=== PATIENT | male | born 1960 | race Caucasian/White ===

== ENCOUNTER → 2022-05-21 09:24 | Outpatient (BNVA) | payer BC, SELFPAY | PROVIDERS: Referring Provider Family Medicine; Visit Provider Orthopaedic Surgery | DX: M19.012 Primary osteoarthritis, left shoulder (principal) | CPT/HCPCS: 73030 ==

== ENCOUNTER → 2022-05-28 08:40 | Outpatient (BNVA) | payer BC, SELFPAY | PROVIDERS: Referring Provider Family Medicine; Visit Provider Orthopaedic Surgery | DX: M17.11 Unilateral primary osteoarthritis, right knee (principal) | CPT/HCPCS: 73560; 73565 ==

== ENCOUNTER 2022-06-11 07:21 | Outpatient (CLI) | payer BC, SELFPAY ==
--- NOTE | 2022-06-11 07:30 | CT_ITS ---
WS: [id number] NONCONTRAST CT LEFT SHOULDER TECHNIQUE: Noncontrast CT LEFT shoulder with coronal and sagittal reformatted images. MIP images. CLINICAL INFORMATION: pre op planning COMPARISON: None. DLP: 308.[address] scans at [facility] use at least one of these dose optimization techniques: automated e xposure control; mA and/or kV adjustment per patient size (includes targeted exams where dose is matc hed to clinical indication); or iterative reconstruction. FINDINGS: Advanced degenerative arthritis glenohumeral joint with subchondral cystic changes involving the fariba ral head and glenoid. Hypertrophic spurring along the medial humeral head. Moderate degenerative narr owing at the AC joint with narrowing of the subacromial space. Mild downsloping of the acromion. Clavicle is normal in appearance. Proximal humerus is normal in appearance. Mild thinning of the supr aspinatus. Normal scapula. Partially visualized LEFT lung is well aerated. CT/CT shoulder LT wo con* [id number] IMPRESSION: Images obtained for preoperative purposes
== END 2022-06-11 07:22 | disposition home or self-care (01) ==
PROVIDERS: PCP Family Medicine; Visit Provider Orthopaedic Surgery
DX: M19.012 Primary osteoarthritis, left shoulder (principal)
CPT/HCPCS: 73200

== ENCOUNTER 2022-06-24 10:30 | Observation (INO) | payer BC, SELFPAY ==
[2022-06-17 11:02] VITALS: BMI 29.0
[2022-06-17 11:14] LABS: Basophils # 0.1 10^3/uL (0.0-0.1); Basophils % 1.4 %; Eosinophils # 0.1 10^3/uL (0.0-0.8); Hemoglobin 14.4 g/dL (11.7-16.6); Lymphocytes # 1.2 10^3/uL (0.8-4.8); Lymphocytes % 22.5 %; Mean Corpuscular HGB Conc 34.3 g/dL (30.0-36.0); Mean Corpuscular Hemoglobin 32.4 pg (28.0-34.0); Mean Corpuscular Volume 94.4 fl (80-94); Monocytes # 0.4 10^3/uL (0.2-0.9); Monocytes % 7.8 %; Neutrophils # 3.39 10^3/uL (1.8-7.7); Neutrophils % 66.1 %; Nucleated Red Blood Cells % 0 %; Platelet Count 244 10^3/cmm (130-400); Red Blood Count 4.45 10^6/uL (4.1-5.3); Red Cell Distribution Width 12.3 % (12.1-15.1); White Blood Count 5.1 10^3/uL (4.0-10.0)
[2022-06-17 11:34] LABS: Alanine Aminotransferase 29 U/L (0-41); Albumin Level 4.7 g/dL (3.5-5.2); Alkaline Phosphatase 66 U/L (40-130); Aspartate Amino Transferase 30 U/L (0-40); Blood Urea Nitrogen 12 mg/dL (8-23); Calcium 9.2 mg/dL (8.5-10.5); Carbon Dioxide 26 mmol/L (22-29); Chloride 102 mmol/L (98-107); Globulin 2.5 g/dL (1.3-4.6); Glomerular Filtration Rate 85.8 mL/min (90-130); Glucose 93 mg/dL (65-115); Osmolality Calculated 283 mOsm/kg (285-295); Sodium 137 mmol/L (136-145); Total Bilirubin 0.3 mg/dL (0.15-1.2); Total Protein 7.2 g/dL (6.6-8.7)
--- NOTE | 2022-06-17 15:21 | ANES.PREANE2 ---
Pre-Anesthetic Assessment Height/Weight: Height 1.75 m Weight 89.358 kg Operation Date: 06/24/22 07:00 Proposed Procedures p left total shoulder arthroplasty/ 56699,M19.012(Left) - Ye Ruelas MD Familial anesthetic complications: none Was Beta Jesus Alberto taken within 24 hours: N/A Was Clonidine taken within 24 hours: N/A Social No alcohol and No tobacco Exam alert, oriented x 3, clear to auscultation bilaterally and regular rate & rhythm Airway Submandibular: within normal limits Cervical ROM: within normal limits Mallampati: Class II Dentition: full CV/HEM Hypertension Metabolic Hyperlipidemia [facility] [place] Osteoarthritis/DJD Neuropsych Anxiety Anesthetic Plan ASA status: 2 Anesthesia: General and Regional (specify below) (Interscalene nerve blk) Medications/Allergies Home Medications Medication Instructions Recorded Confirmed Last Taken Type atorvastatin 20 mg tablet 20 mg PO DAILY 04/25/22 06/17/22 06/17/22 History celecoxib 200 mg capsule 200 mg PO DAILY 04/25/22 06/17/22 06/16/22 History cetirizine 10 mg tablet (Allergy 10 mg PO DAILY 04/25/22 06/17/22 06/17/22 History Relief (cetirizine)) losartan 50 mg tablet 50 mg PO DAILY 04/25/22 06/17/22 06/17/22 History diazepam 10 mg tablet 10 mg PO BEDTIME PRN Sleep 06/17/22 06/17/22 05/14/22 History zolpidem 10 mg tablet 10 mg PO BEDTIME 06/17/22 06/17/22 06/17/22 History Allergies Allergy/AdvReac Type Severity Reaction Status Date / Time No Known Allergies Allergy Verified 06/06/22 13:17 [facility] Anesthesia Family History Mother Aortic aneurysm Data Anesthesia 06/17/22 10:55 06/17/22 10:55 Short CBC 06/17/22 Range/Units 10:55 WBC 5.1 (4.0-10.0) 10^3/uL Hgb 14.4 (11.7-16.6) g/dL Hct 42.0 (42.0-52.0) % MCV 94.4 H (80-94) fl Plt Count 244 (130-400) 10^3/cmm Neut % (Auto) 66.1 % Neut # (Auto) 3.39 (1.8-7.7) 10^3/uL BMP 06/17/22 10:55 Sodium 137 Potassium 4.0 Chloride 102 Carbon Dioxide 26 BUN 12 Creatinine 0.9 Glucose 93 Calcium 9.2 Liver Function 06/17/22 Range/Units 10:55 Total Bilirubin 0.3 (0.15-1.2) mg/dL AST 30 (0-40) U/L ALT 29 (0-41) U/L Alkaline Phosphatase 66 (40-130) U/L Albumin 4.7 (3.5-5.2) g/dL Cardiac Studies: No Data to Display
[2022-06-24] VITALS (19 sets, daily range): BP systolic 100–132; BP diastolic 65–94; PULSE 61–97; RESP 12–18; TEMP 36.3–36.8; O2SAT 90–100
[2022-06-24] MEDS: sodium chloride 0.9% 1,000 ML 30 ML IV (06:02)
[2022-06-24] MEDS: CELEcoxib 200 mg Capsule 400 MG PO (06:03)
[2022-06-24] MEDS: acetaminophen 500 mg Tablet 1000 MG PO ×3 (06:03→22:11)
[2022-06-24] MEDS: oxyCODONE 20 mg ER (12 HR) Tablet PO (06:03)
--- NOTE | 2022-06-24 07:00 | P.HP_ITS ---
Same Day Surgery H&P Indication for Procedure/HPI DATE OF PROCEDURE: June 24, 2022 CHIEF COMPLAINT/INDICATIONFOR SURGICAL PROCEDURE: Osteoarthritis left shoulder here for total PREOP DIAGNOSIS: Osteoarthritis shoulder, left PLANNED PROCEDURE: Operation Date: 06/24/22 07:00 Proposed Procedures p left total shoulder arthroplasty/ 39181,M19.012(Left) - Ye Ruelas MD 61-year-old here for left total shoulder arthroplasty. The patient states that his pain has been had progressive pain for up to 2 years.? Currently he is r etired now.? 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 He states that he has had multiple shoulder injections, with the most recent 2 years ago.? He describes very little improvement with the last injection.? He states that his pain is in the anterior lateral shoulder. He has pain with all aspects of range of motion.? Difficulty sleeping at night.? He has been taking Celebrex for pain/discomfort.? He feels that he has a very good pain threshold but this is becoming very limited Medications/Allergies* Home Medications Medication Instructions Recorded Confirmed Type atorvastatin 20 mg tablet 20 mg PO DAILY 04/25/22 06/24/22 History celecoxib 200 mg capsule 200 mg PO DAILY 04/25/22 06/24/22 History cetirizine 10 mg tablet (Allergy 10 mg PO DAILY 04/25/22 06/24/22 History Relief (cetirizine)) losartan 50 mg tablet 50 mg PO DAILY 04/25/22 06/24/22 History diazepam 10 mg tablet 10 mg PO BEDTIME PRN Sleep 06/17/22 06/17/22 History zolpidem 10 mg tablet 10 mg PO BEDTIME 06/17/22 06/24/22 History Allergies/Adverse Reactions Allergy/AdvReac Type Severity Reaction Status Date / Time No Known Allergies Allergy Verified 06/06/22 13:17 Current Medications: Generic Name Dose Route Start Last Admin Trade Name Freq PRN Reason Stop Dose Admin Sodium Chloride 1,000 mls @ 30 mls/hr 06/24/22 05:45 06/24/22 06:02 Sodium Chloride 0.9% IV 06/25/22 05:44 30 mls/hr .Q24H NEELIMA Administration Pertinent History/Comorbid Conditions* Family History (Updated 04/25/22 @ 09:13 by Savannah Peacock) Mother Aortic aneurysm Mother Pertinent Exam Findings alert, oriented x 3, clear to auscultation bilaterally, operative site marked and procedure specific exam findings SHOULDER [left]: No tenderness shoulder RANGE OF MOTION:? EXAMINED EXTREMITY ? Flexion: 70 ? External Rotation: Neutral? ROTATOR CUFF STRENGTH: ? ? ? EXAMINED EXTREMITY ? Abduction Supination: Diminished with pain ? Abduction Pronation: Diminished with same ? External Rotation: Diminished with pain ? Belly Press: Negative Strong radial pulses bilaterally. MOTOR:? 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 SENSATION: Intact to light touch Recommendations Surgery/Procedure today Coding Level of Care Code Acute Code for Chg Fwd Diagnoses
[2022-06-24] MEDS: ceFAZolin 2,000 MG in sodium chloride 0.9% (plus) 50 ML 100 MG IV ×3 (07:11→22:11)
--- NOTE | 2022-06-24 07:31 | P.ANESUD_ITS ---
Pre-Anesthetic Update Pre-Anesthetic Assessment: Date of Surgery/Procedure: 06/24/22 Preop Maggi gnosis: Osteoarthritis shoulder, left Proposed Procedure: Operation Date: 06/24/22 07:00 Proposed Procedures p left total shoulder arthroplasty/ 66964,M19.012(Left) - Ye Ruelas MD Any changes to Pre-Anesthetic Assessment?: No Last Intake: Intake Last Liquid Date 06/24/22 Last Liquid Time 04:00 Last Solid Date 06/23/22 Last Solid Time 18:00 Vitals: Temperature 97.6 F 06/24/22 05:44 Temperature Source Temporal Artery S can 06/24/22 05:44 Pulse Rate 97 06/24/22 05:44 Respiratory Rate 16 06/24/22 06:03 Respiratory Effort Spontaneous 06/24/22 06:03 Respiratory Depth Normal 06/24/22 06:03 Respiratory Patter n Normal 06/24/22 06:03 Blood Pressure 124/94 06/24/22 05:44 Blood Pressure Dejah n 104 06/24/22 05:44 Pulse Oximetry 96 06/24/22 06:03 Exam: Pre-Anes Outpt Exam: alert, oriented x 3, clear to auscultation bilaterally and regular rate & rhythm Cardiac Studies: No Data to Display Anesthesia Procedures Nerve Block: Nerve Block 1: Main Anesthesia: general anesthesia Time Out Performed: Yes Consent: requested by attending/covering physician, from patient, risks and benefits reviewed and patient agrees to proceed Nerve block location: interscalene (left) Anesthesia monitors applied: pulse oximetry, EKG, BP cuff and oxygen Nerve block position: semi sitting Anesthetic Used: ropivicaine 0.5% Amount of anesthesia used (mL): 30 Ultrasound used to: recognize landmarks and visualize and ID brachial plexus Nerve Stimulator Used?: No Interscalene/Femoral BLK: 2 stimuplex 22 g needle used for position and inplane approach Injection: neg aspiration of heme Patient Tolerated Procedure: well Complications: none
[2022-06-24] MEDS: tranexamic acid 1,000 mg/10mL SDV 1000 MG IV (07:40)
[2022-06-24] MEDS: sodium chloride 0.9% 100 mL Bag XX (08:01)
[2022-06-24] MEDS: EPINEPHrine 1 mg/mL INJ XX (08:03)
--- NOTE | 2022-06-24 09:32 | P.OP_ITS ---
Operative Report Date of procedure: June 24, 2022 Pre-op diagnosis: Preop Diagnosis Osteoarthritis shoulder, left Post-op diagnosis: same Procedure done: [] total shoulder arthroplasty Implants: Tornier total shoulder 1) Corticloc 4B Flex stem 2) 51/20 Flex low offset head 3) PerFORM cortiolc pegged glenoid 40 mm small Pathology: none sent Surgeon: Ye Ruelas Anesthesia: General and Nerve Block (Interscalene) Estimated blood loss (mL): 350 Findings: The patient's severe degenerative change of the glenohumeral joint with sclerosis and osteophytes of the humeral head and central glenoid. Condition: stable Disposition: PACU Brief History: Bhavesh is a 61-year-old male with left shoulder pain attributable to osteoarthritis. He failed conservative measures including injections and anti-inflammatories has chosen left total shoulder arthroplasty to improve pain and function Procedure: Patient was given a interscalene block in holding. The patient was taken to the operating room and was given 2 g of Ancef. He is prepped and draped in the beachchair position with his arm supported on a Neff stand. A timeout was performed. A 10cm incision was made just lateral to the coracoid extending distally in line with the medial deltoid border. Dissection was carried out identifying the cephalic vein in the deltopectoral interval. Dissection was ac complished manually through the interval and subacromial and lateral deltoid adhesions released by hand. A Geovani soft tissue protector was placed. The biceps tendon was identified distally and traced proximally through the bicipital groove. The subscapularis and underlying capsule were then peeled off of the lesser tuberosity. The free tendon was fixed with braided sutures in a locking fashion and the free ends secured with a hemostat. The rotator interval was then split. The shoulder then could be dislocated out of the wound. In accordance with our preoperative plan a femoral head cut was made at the level of the capsular insertions with retractors to protect the rotator cuff. A central pin was placed and the proximal humerus prepared for the size nucleus and covered with the humeral protector plate. Retractors were then placed around the glenoid with the humeral head being retracted posteriorly and inferiorly. Release of the capsule was accomplished beginning anteriorly and working posteriorly around the humeral head. In accordance with the plan the central guidepin was placed. The glenoid was planed down to subchondral bone removing. The central peg hole and peripheral holes were then placed. The glenoid was irrigated removing cartilaginous remnants. Peripheral peg holes were dried with a Ray-Nara and prepared with an epinephrine solution. Simplex P antibiotic cement was packed in each pedicle and the final glenoid component placed. The humerus was prepared for a size 3 nucleus. A 52/21 Simpliciti head was placed and trial reduction was accomplished with the 51/20 head satisfactory stability. Traction was applied to the head with the nucleus pulling out of the joint. Decision was made to proceed with a stemmed component. The canal was then prepared with sequential broaching for the final 4B flex stem. A trial reduction with the 51/20 femoral head provided adequate stability. The final 4B stem and 51/20 Flex stem was assembled on the back table and placed with excellent stability. 4 drill holes were then made beginning in the bicipital groove posteriorly into the greater tuberosity. Sutures from the subscapularis were passed through th priya holes and the sutures were secured over a 4-hole mini plate over the greater tuberosity with excellent purchase. The rotator interval was closed laterally with a braided nylon suture. The shoulder was irrigated with saline. The deltopectoral interval was closed with interrupted 0 Vicryl suture. Subcutaneous tissues were closed with running 2-0 Stratafix. Skin edges closed with a running 4-0 Stratafix. The skin was covered with a Prineo skin glue and covered with OpSite. The patient was placed in a sling, extubated, and taken recovery room in stable condition.
--- NOTE | 2022-06-24 09:47 | XR_ITS ---
WS: [id number] Exam: XR shoulder LT min 2V* [id number] Date/Time of Exam: 06/24/2022 9:47 AM Reason For Exam: Left total shoulder Comparison 05/21/2022. A total left shoulder prosthesis has been placed and is in the satisfactory position. Postoperative c hanges in the adjacent soft tissues. XR/XR shoulder LT min 2V* [id number] IMPRESSION: 1. Left shoulder prosthesis in satisfactory position.
[2022-06-24] MEDS: sodium chloride 0.9% 1,000 ML 100 ML IV ×2 (11:08→20:20)
--- NOTE | 2022-06-24 15:27 | ANE.PACU2 ---
Inpatient post-anesthesia follow up: Airway intact: Yes Vital signs: Temperature 97.7 F Pulse Rate 88 Respiratory Rate 18 Blood Pressure 114/78 Pulse Oximetry 93 Oxygen Delivery Me thod Room Air Oxygen Flow Rate 6 Fraction of Inspir ed Oxygen Hydration adequate: Yes Nausea and vomiting: No Pain level: 1 Mental status: Baseline
[2022-06-24] MEDS: gabapentin 300 mg Capsule PO (17:14)
[2022-06-24] MEDS: CELEcoxib 200 mg Capsule PO (17:14)
[2022-06-24] MEDS: zolpidem 5 mg Tablet 10 MG PO (22:10)
[2022-06-25 04:00] VITALS: BP 117/77; PULSE 82; RESP 18; TEMP 36.6; O2SAT 93
[2022-06-25 06:23] VITALS: RESP 16
[2022-06-25] MEDS: oxyCODONE 5 mg IR Tab/Cap PO (06:23)
[2022-06-25] MEDS: acetaminophen 500 mg Tablet 1000 MG PO (06:24)
[2022-06-25] MEDS: ceFAZolin 2,000 MG in sodium chloride 0.9% (plus) 50 ML 100 MG IV (06:24)
[2022-06-25] MEDS: sodium chloride 0.9% 1,000 ML 100 ML IV (06:25)
[2022-06-25 07:31] VITALS: BP 132/84; PULSE 89; RESP 18; TEMP 36.7; O2SAT 97
--- NOTE | 2022-06-25 07:32 | P.DS_ITS ---
Discharge Providers Date of Admission: 06/24/22 10:30 Date of Discharge: June 25, 2022 Attending Provider at Admission: Ye Ruelas MD Attending Provider at Discharge: Ye Ruelas MD Primary Care Provider: Minerva Dueñas DO Diagnoses at Discharge Discharge Diagnosis (1) Osteoarthritis of right hip: Status: Resolved (2) Status post right hip replacement: Status: Acute Reason for Visit Reason for Visit: 10584, M19.012 Brief History: See admission history Hospital Course Hospital Course The patient tolerated surgery well. They remained hemodynamically stable. They was begun on aspirin and a compressive dressing for DVT prophylaxis. The patient was mobilized with therapy beginning the day of surgery and by the first postoperative day independent with the walker. As the pain was adequately controlled and they were fully mobile they were discharged home. Physical Exam Narrative: On the day of discharge the hip incision was clean. The incision was free of drainage. They had no particular swelling about the thigh or distal. No distal neurovascular deficits were noted. Discharge Data Studies Completed and Pending Completed Studies During Hospitalization Category Date Time Status XR shoulder LT min 2V* [id number] Routine Exams 06/24/22 09:47 Completed Radiology Impressions Shoulder X-Ray 06/24/22 09:47 IMPRESSION: 1. Left shoulder prosthesis in satisfactory position. Laboratory Results WBC 5.1 10^3/uL (4.0-10.0) 06/17/22 10:55 RBC 4.45 10^6/uL (4.1-5.3) 06/17/22 10:55 Hgb 14.4 g/dL (11.7-16.6) 06/17/22 10:55 Hct 42.0 % (42.0-52.0) 06/17/22 10:55 MCV 94.4 fl (80-94) H 06/17/22 10:55 MCH 32.4 pg (28.0-34.0) 06/17/22 10:55 MCHC 34.3 g/dL (30.0-36.0) 06/17/22 10:55 RDW 12.3 % (12.1-15.1) 06/17/22 10:55 Plt Count 244 10^3/cmm (130-400) 06/17/22 10:55 MPV 9.0 fL (7.4-10.4) 06/17/22 10:55 Neut % (Auto) 66.1 % 06/17/22 10:55 Lymph % (Auto) 22.5 % 06/17/22 10:55 [place] % (Auto) 7.8 % 06/17/22 10:55 Eos % (Auto) 2.0 % 06/17/22 10:55 Baso % (Auto) 1.4 % 06/17/22 10:55 Neut # (Auto) 3.39 10^3/uL (1.8-7.7) 06/17/22 10:55 Lymph # (Auto) 1.2 10^3/uL (0.8-4.8) 06/17/22 10:55 [place] # (Auto) 0.4 10^3/uL (0.2-0.9) 06/17/22 10:55 Eos # (Auto) 0.1 10^3/uL (0.0-0.8) 06/17/22 10:55 Baso # (Auto) 0.1 10^3/uL (0.0-0.1) 06/17/22 10:55 Nucleated RBC % (auto) 0 % 06/17/22 10:55 Nucleated RBCs # 0.0 /100WBC 06/17/22 10:55 Sodium 137 mmol/L (136-145) 06/17/22 10:55 Potassium 4.0 mmol/L (3.5-5.1) 06/17/22 10:55 Chloride 102 mmol/L (98-107) 06/17/22 10:55 Carbon Dioxide 26 mmol/L (22-29) 06/17/22 10:55 Anion Gap 13.0 (5-19) 06/17/22 10:55 BUN 12 mg/dL (8-23) 06/17/22 10:55 Creatinine 0.9 mg/dL (0.7-1.2) 06/17/22 10:55 GFR Calculation 85.8 mL/min (90-130) L 06/17/22 10:55 Glucose 93 mg/dL (65-115) 06/17/22 10:55 Calculated Osmolality 283 mOsm/kg (285-295) L 06/17/22 10:55 Calcium 9.2 mg/dL (8.5-10.5) 06/17/22 10:55 Total Bilirubin 0.3 mg/dL (0.15-1.2) 06/17/22 10:55 AST 30 U/L (0-40) 06/17/22 10:55 ALT 29 U/L (0-41) 06/17/22 10:55 Alkaline Phosphatase 66 U/L (40-130) 06/17/22 10:55 Total Protein 7.2 g/dL (6.6-8.7) 06/17/22 10:55 Albumin 4.7 g/dL (3.5-5.2) 06/17/22 10:55 Globulin 2.5 g/dL (1.3-4.6) 06/17/22 10:55 Vitals Last Vital Signs Temp 98.0 F 06/25/22 07:31 Pulse 89 06/25/22 07:31 Resp 18 06/25/22 07:31 BP 132/84 06/25/22 07:31 Pulse Ox 97 06/25/22 07:31 O2 Del Method Room Air 06/25/22 07:31 O2 Flow Rate 6 06/24/22 20:00 Discharge Plan Discharge Patient Disposition: Home Condition: Stable Prescriptions: New oxycodone 5 mg Tablet 5 mg PO Q4H PRN (Reason: Moderate Pain) 30 Days Qty: 30 0RF acetaminophen 500 mg Tablet 1,000 mg PO Q8H 14 Days Qty: 84 0RF gabapentin 300 mg Capsule 300 mg PO BID 7 Days Qty: 14 0RF aspirin 325 mg Tablet 325 mg PO DAILY 30 Days Qty: 30 0RF Continued atorvastatin 20 mg tablet 20 mg PO DAILY celecoxib 200 mg capsule 200 mg PO DAILY cetirizine [Allergy Relief (cetirizine)] 10 mg tablet 10 mg PO DAILY losartan 50 mg tablet 50 mg PO DAILY diazepam 10 mg tablet 10 mg PO BEDTIME PRN (Reason: Sleep) zolpidem 10 mg tablet 10 mg PO BEDTIME Discharge Orders: Discharge Order (Routine); Ordered 06/25/22 Ordered By: Ye Ruelas Referrals: Ye Ruelas MD [Physician] - 07/09/22 2:15 pm Discharge Diet: Advance as tolerated Discharge Activity: Limit activity as instructed Patient Instructions: Opioid Safety Activity Restrictions/Additional Instructions: Okay to shower. No soaking incision in tub Apply FirstIce up to 20 min/hr for pain and swelling. Take Neurontin twice a day for 7 days. Take Tylenol 500mg (up to 2 tabs) 3 times a day for mild pain Take oxycodone for breakthrough pain. Exercises per physical therapy. May weight-bear as tolerated on total hip arthroplasty IF HAVE ANY PROBLEMS OR QUESTIONS CALL HOSPITAL MOTTLE LAY UP OPERATOR AT AND ASK TO HAVE DR. ARCHANA PETERSEN. Discharge Attestations Time Spent in Discharge Care*: other Quality Metrics Clinical Quality Measures [ No reported AMI, CVA or VTE this stay] Coding Level of Care Code Acute Code for Chg Fwd Diagnoses Osteoarthritis of right hip M16.11 Status post right hip replacement Z96.641
--- NOTE | 2022-06-25 07:48 | P.DS_ITS ---
Discharge Providers Date of Admission: 06/24/22 10:30 Date of Discharge: June 25, 2022 Attending Provider at Admission: Ye Ruelas MD Attending Provider at Discharge: Ye Ruelas MD Primary Care Provider: Minerva Dueñas DO Diagnoses at Discharge Discharge Diagnosis (1) Status post replacement of left shoulder joint: Status: Acute (2) Osteoarthritis of left shoulder: Status: Resolved Reason for Visit Reason for Visit: 73683, M19.012 Brief History: 61-year-old male with progressive functionally limiting left shoulder pain unresponsive to medications and injections Hospital Course Hospital Course The patient tolerated did well postoperatively. Pain was adequately controlled with oral medications. As his pain was controlled he was discharged home on the first postoperative day. Physical Exam Narrative: On the day of discharge the patient's dressing was clean and dry. The patient's would fire his deltoid and their biceps. No distal neurovascular deficits were noted. Discharge Data Studies Completed and Pending Completed Studies During Hospitalization Category Date Time Status XR shoulder LT min 2V* [id number] Routine Exams 06/24/22 09:47 Completed Radiology Impressions Shoulder X-Ray 06/24/22 09:47 IMPRESSION: 1. Left shoulder prosthesis in satisfactory position. Laboratory Results WBC 5.1 10^3/uL (4.0-10.0) 06/17/22 10:55 RBC 4.45 10^6/uL (4.1-5.3) 06/17/22 10:55 Hgb 14.4 g/dL (11.7-16.6) 06/17/22 10:55 Hct 42.0 % (42.0-52.0) 06/17/22 10:55 MCV 94.4 fl (80-94) H 06/17/22 10:55 MCH 32.4 pg (28.0-34.0) 06/17/22 10:55 MCHC 34.3 g/dL (30.0-36.0) 06/17/22 10:55 RDW 12.3 % (12.1-15.1) 06/17/22 10:55 Plt Count 244 10^3/cmm (130-400) 06/17/22 10:55 MPV 9.0 fL (7.4-10.4) 06/17/22 10:55 Neut % (Auto) 66.1 % 06/17/22 10:55 Lymph % (Auto) 22.5 % 06/17/22 10:55 [place] % (Auto) 7.8 % 06/17/22 10:55 Eos % (Auto) 2.0 % 06/17/22 10:55 Baso % (Auto) 1.4 % 06/17/22 10:55 Neut # (Auto) 3.39 10^3/uL (1.8-7.7) 06/17/22 10:55 Lymph # (Auto) 1.2 10^3/uL (0.8-4.8) 06/17/22 10:55 [place] # (Auto) 0.4 10^3/uL (0.2-0.9) 06/17/22 10:55 Eos # (Auto) 0.1 10^3/uL (0.0-0.8) 06/17/22 10:55 Baso # (Auto) 0.1 10^3/uL (0.0-0.1) 06/17/22 10:55 Nucleated RBC % (auto) 0 % 06/17/22 10:55 Nucleated RBCs # 0.0 /100WBC 06/17/22 10:55 Sodium 137 mmol/L (136-145) 06/17/22 10:55 Potassium 4.0 mmol/L (3.5-5.1) 06/17/22 10:55 Chloride 102 mmol/L (98-107) 06/17/22 10:55 Carbon Dioxide 26 mmol/L (22-29) 06/17/22 10:55 Anion Gap 13.0 (5-19) 06/17/22 10:55 BUN 12 mg/dL (8-23) 06/17/22 10:55 Creatinine 0.9 mg/dL (0.7-1.2) 06/17/22 10:55 GFR Calculation 85.8 mL/min (90-130) L 06/17/22 10:55 Glucose 93 mg/dL (65-115) 06/17/22 10:55 Calculated Osmolality 283 mOsm/kg (285-295) L 06/17/22 10:55 Calcium 9.2 mg/dL (8.5-10.5) 06/17/22 10:55 Total Bilirubin 0.3 mg/dL (0.15-1.2) 06/17/22 10:55 AST 30 U/L (0-40) 06/17/22 10:55 ALT 29 U/L (0-41) 06/17/22 10:55 Alkaline Phosphatase 66 U/L (40-130) 06/17/22 10:55 Total Protein 7.2 g/dL (6.6-8.7) 06/17/22 10:55 Albumin 4.7 g/dL (3.5-5.2) 06/17/22 10:55 Globulin 2.5 g/dL (1.3-4.6) 06/17/22 10:55 Vitals Last Vital Signs Temp 98.0 F 06/25/22 07:31 Pulse 89 06/25/22 07:31 Resp 18 06/25/22 07:31 BP 132/84 06/25/22 07:31 Pulse Ox 97 06/25/22 07:31 O2 Del Method Room Air 06/25/22 07:31 O2 Flow Rate 6 06/24/22 20:00 Discharge Plan Discharge Patient Disposition: Home Condition: Stable Prescriptions: New oxycodone 5 mg Tablet 5 mg PO Q4H PRN (Reason: Moderate Pain) 30 Days Qty: 30 0RF acetaminophen 500 mg Tablet 1,000 mg PO Q8H 14 Days Qty: 84 0RF gabapentin 300 mg Capsule 300 mg PO BID 7 Days Qty: 14 0RF aspirin 325 mg Tablet 325 mg PO DAILY 30 Days Qty: 30 0RF Continued atorvastatin 20 mg tablet 20 mg PO DAILY celecoxib 200 mg capsule 200 mg PO DAILY cetirizine [Allergy Relief (cetirizine)] 10 mg tablet 10 mg PO DAILY losartan 50 mg tablet 50 mg PO DAILY diazepam 10 mg tablet 10 mg PO BEDTIME PRN (Reason: Sleep) zolpidem 10 mg tablet 10 mg PO BEDTIME Discharge Orders: Discharge Order (Routine); Ordered 06/25/22 Ordered By: Ye Ruelas Referrals: Ye Ruelas MD [Physician] - 07/09/22 2:15 pm Discharge Diet: Advance as tolerated Discharge Activity: Limit activity as instructed Patient Instructions: Opioid Safety Activity Restrictions/Additional Instructions: Okay to shower. No soaking incision in tub May remove OpSite dressing in 48 hours. Leave skin glue in place Apply FirstIce up to 20 min/hr for pain and swelling. Take Neurontin twice a day for 7 days. Take Tylenol 500mg (up to 2 tabs) 3 times a day for mild pain Take oxycodone for breakthrough pain. Exercises per occupational therapy IF HAVE ANY PROBLEMS OR QUESTIONS CALL HOSPITAL MACHINE QUILT STUFFER AT AND ASK TO HAVE DR. ARCHANA PETERSEN. Discharge Attestations Time Spent in Discharge Care*: other Quality Metrics Clinical Quality Measures [ No reported AMI, CVA or VTE this stay] Coding Level of Care Code Acute Code for Chg Fwd Diagnoses Status post replacement of left shoulder joint Z96.612 Osteoarthritis of left shoulder M19.012
[2022-06-25] MEDS: aspirin 325 mg Tablet PO (08:51)
[2022-06-25 08:52] VITALS: BP 132/84
[2022-06-25] MEDS: losartan 50 mg Tablet PO (08:52)
[2022-06-25] MEDS: atorvastatin 40 mg Tablet 20 MG PO (08:52)
[2022-06-25] MEDS: cetirizine 10 mg Tablet PO (08:52)
[2022-06-25] MEDS: gabapentin 300 mg Capsule PO (08:52)
[2022-06-25] MEDS: CELEcoxib 200 mg Capsule PO (08:52)
[2022-06-25 10:07] VITALS: BP 132/84; PULSE 88; RESP 18; TEMP 36.6; O2SAT 99
--- NOTE | 2022-06-25 10:28 | PC.CHAP ---
Pastoral Care Encounter/Spiritual Assessment Type of Contact [] Declined security support analyst visit [] Patient/Family/Request visit [] Outpatient visit [] Follow-up visit [] Physician referral [] Code/Alert [x] Routine visit [] Staff referral [] Actively dying [] Patient sleeping [] Family support [] [] Out of room [] Palliative care [] [] Receiving care in room [] Pre-surgical visit [] Trauma [] Long length of stay [] ICU visit [] Other: Relational/Emotional Strength [x] Patient feels connected with others/family/visitors/staff [] Distress [] Loneliness/isolation [] Abandonment Spirituality of Patient [x] Person of Janette [] Attends [employer] of their Janette [x] Believes in Prayer [] Reads Bible or Confucianist materials [] There are Spiritual issues to be addressed [employer] Interventions [x] Prayer [x] Active listening [] Non-anxious presence [x] Spiritual/emotional support [] Crisis/trauma care [] Spiritual counseling [] Bereavement support [] Provided bereavement packet [] Provided Bible/devotional materials [] Provided toy/stuffed animal, coloring book to patient or family member [] Provided Communion [] Anointing/[place] [] Salvation [x] Completed spiritual assessment [] Other: Impact on Illness or Injury [] Angry [] Fearful [] Anxious [] Often cries [] Exhaustion [] Unable to work [] Unable to attend hindu [] Unable to walk/stand [] Unable to read [] Unable to drive [] Unable to eat/drink [] Unable to sleep [] Unable to be with family [] Patient intubated [] Other: Summary Time spent with patient 5 min
== END 2022-06-25 11:37 | disposition home or self-care (01) ==
LOC: MEDSURG 10:30
PROVIDERS: Anesthesiology; Admitting Provider Orthopaedic Surgery; PCP Family Medicine; Visit Provider Orthopaedic Surgery
PROC: (CPT 23472; principal; 2022-06-24 07:00)
DX: M19.012 Primary osteoarthritis, left shoulder (principal); I10 Essential (primary) hypertension; E78.5 Hyperlipidemia, unspecified; Z79.899 Other long term (current) drug therapy
CPT/HCPCS: 23472; 36415; 73030; 80053; 85025; 97165; C1713; C1776; G0378; J0171; J0690; J1100; J1580; J2250; J2370; J2405; J2704; J2710; J2795; J3010; J3490; J7030

== ENCOUNTER → 2022-07-30 14:01 | Outpatient (BNVA) | payer BC, SELFPAY | PROVIDERS: PCP Family Medicine; Visit Provider Orthopaedic Surgery | DX: Z96.612 Presence of left artificial shoulder joint (principal) | CPT/HCPCS: 73030 ==

== ENCOUNTER → 2022-08-27 14:35 | Outpatient (BNVA) | payer BC, SELFPAY | PROVIDERS: PCP Family Medicine; Visit Provider Nurse Practitioner Family | DX: Z96.612 Presence of left artificial shoulder joint (principal) | CPT/HCPCS: 73030 ==

== ENCOUNTER 2022-11-14 20:00 | Outpatient (CLI) | payer BC, SELFPAY | END 2022-11-14 20:01 | disposition home or self-care (01) | LOC: SLEEP 11-15 02:13 | PROVIDERS: PCP Family Medicine; Visit Provider Specialist | DX: G47.33 Obstructive sleep apnea (adult) (pediatric) (principal) | CPT/HCPCS: 95811 ==

== ENCOUNTER → 2022-11-28 13:13 | Outpatient (BNVA) | payer BC, SELFPAY | PROVIDERS: PCP Family Medicine; Visit Provider Physician Assistant | DX: Z96.612 Presence of left artificial shoulder joint (principal) | CPT/HCPCS: 73030 ==

== ENCOUNTER → 2023-01-28 11:20 | Outpatient (BNVA) | payer BC, SELFPAY | PROVIDERS: PCP Family Medicine; Visit Provider Physician Assistant | DX: Z96.612 Presence of left artificial shoulder joint (principal) | CPT/HCPCS: 73030 ==

== ENCOUNTER → 2024-08-11 09:14 | Outpatient (BNVA) | payer BC, SELFPAY | PROVIDERS: PCP Family Medicine; Visit Provider Specialist | DX: M17.0 Bilateral primary osteoarthritis of knee (principal) | CPT/HCPCS: 73560; 73565 ==

== ENCOUNTER → 2024-12-15 13:47 | Outpatient (BNVA) | payer BC, SELFPAY | PROVIDERS: PCP Family Medicine; Visit Provider Specialist | DX: M17.12 Unilateral primary osteoarthritis, left knee (principal) | CPT/HCPCS: 73560; 73565 ==